=== PATIENT | male | born 1990 | race Two or more races ===

== ENCOUNTER 2016-12-13 11:27 | Emergency (ER) | payer MEDICARE, OTHER ==
[2016-12-13 11:58] VITALS: TEMP 97.5; BMI 29.5
--- NOTE | 2016-12-13 15:00 | PDOC ---
History of Present Illness - General Chief Complaint: Headache Stated Complaint: HEADACHE Time Seen by Provider: 12/13/16 15:00 - History of Present Illness Initial Comments: 12/13/16 16:20 Patient is a 26-year-old male with a past medical history of diabetes type 1, hypertension, asthma, Bipolar disorder, herniated disc, who presents to the ED today complaining headache nausea and diarrhea 3 days. Patient states that his headache is mostly frontal and is like his usual headaches. He was concerned because he also had nausea and diarrhea. Patient has not vomited. Patient states that his headaches currently a 6 out of 10. He has not taken anything for his headache. He usually takes Toradol for his headaches, it usually works for him. Patient was able to eat this morning; he had eggs for breakfast. Denies recent sick contacts, fevers, chills, cough, SOB, chest pain, palpitations, vomiting, diarrhea. Past History - Past Medical History Allergies/Adverse Reactions: Allergies Allergy/AdvReac Type Severity Reaction Status Date / Time morphine Allergy Severe Difficulty Verified 12/13/16 11:55 Breathing shellfish derived Allergy Intermediate Itching Verified 12/13/16 11:55 sumatriptan [From Imitrex] AdvReac Intermediate ANAPHYLAXIS Verified 12/13/16 11 :55 sumatriptan succinate AdvReac Intermediate ANAPHYLAXIS Verified 12/13/16 11:55 [From Imitrex] cherries Allergy Uncoded 12/13/16 11:55 chocolate Allergy Uncoded 12/13/16 11:55 Home Medications: Ambulatory Orders Ergocalciferol (Vitamin D2) [Vitamin D] 50,000 unit PO WEEKLY 10/28/15 Metformin HCl [Glucophage] 1,000 mg PO BID 10/28/15 [place]-3 Fatty Acids [[place]-3] 1,000 mg PO BID 10/28/15 Gabapentin [Neurontin -] 400 mg PO BID 08/01/16 Divalproex Sodium [Depakote ER] 500 mg PO DAILY 12/10/16 Insulin Glargine,Hum.rec.anlog [Lantus Solostar PEN (NF)] 15 units SQ HS Lipase/Protease/Amylase [Liz Cardoso 6,000 Units Capsule] 1 cap PO TIDCM 12/10/16 Losartan Potassium [Cozaar -] 25 mg PO DAILY 12/10/16 Meloxicam [Mobic] 15 mg PO DAILY 12/10/16 Asthma: Yes Cancer: No Diabetes: Yes HTN: Yes Liver Disease: Yes Psychiatric Problems: Yes (ADHD, bipolar, anxiety, panic attacks) Seizures: No - Surgical History Abdominal Surgery: Yes Appendectomy: Yes - Immunization History Immunization Up to Date: Yes - Psycho/Social/Smoking Cessation Hx Anxiety: Yes Suicidal Ideation: No Smoking History: Former smoker Have you smoked in the past 12 months: Yes Number of Cigarettes Smoked Daily: 20 If you are a former smoker, when did you quit?: July Information on smoking cessation initiated: Yes Hx Alcohol Use: No Drug/Substance Use Hx: No Substance Use Type: None Hx Substance Use Treatment: No *Physical Exam - Vital Signs Last Vital Signs Temp Pulse Resp BP Pulse Ox 97.5 F L 86 18 155/97 100 12/13/16 11:56 12/13/16 11:56 12/13/16 11:56 12/13/16 11:56 12/13/16 11:56 - Physical Exam Comments: 12/13/16 16:25 GENERAL: Well developed, well nourished. Awake and alert. No acute distress. HEENT: Normocephalic, atraumatic. PERRLA, EOMI. No conjunctival pallor. Sclera are non- icteric. Moist mucous membranes. Oropharynx is clear. NECK: Supple. Full ROM. (-) kernigs/brudinski's sign. No JVD. Carotid pulses 2+ and symmetric, without bruits. No thyromegaly. No lymphadenopathy. CARDIOVASCULAR: Regular rate and rhythm. No murmurs, rubs, or gallops. Distal pulses are 2+ and symmetric. PULMONARY: No evidence of respiratory distress. Lungs clear to auscultation bilaterally. No wheezing, rales or rhonchi. ABDOMINAL: Soft. Non-tender. Non-distended. No rebound or guarding. No organomegaly. Normoactive bowel sounds. MUSCULOSKELETAL Normal range of motion at all joints. No bony deformities or tenderness. No CVA tenderness. EXTREMITIES: No cyanosis. No clubbing. No edema. No calf tenderness. SKIN: Warm and dry. Normal capillary refill. No rashes. No jaundice. NEUROLOGICAL: Alert, awake, appropriate. Cranial nerves 2-12 intact. No deficits to light touch and temperature in face, upper extremities and lower extremities. No motor deficits in the in face, upper extremities and lower extremities. Normoreflexic in the upper and lower extremities. Normal speech. Toes are down- going bilaterally. Gait is normal without ataxia. PSYCHIATRIC: Cooperative. Good eye contact. Appropriate mood and affect. ED Treatment Course - LABORATORY CBC & Chemistry Diagram: 12/13/16 16:02 12/13/16 16:02 Medical Decision Making - Medical Decision Making 12/13/16 16:45 Mr. Amin is a 26 y/o male with a complex medical history presenting with headache 2 days. Given patient's other constitutional symptoms including nausea and diarrhea will order labs to rule out possible DKA or infection. Not concerned for meningitis given lack of nurological focal findings, (-) brudinski 's and kernig signs. No fever. We'll treat the headache and nausea. Patient states he usually gets Toradol at home. However given his diabetes will use Reglan and tylenol. Will reevaluate. 1. CBC, CMP, UA, Acetone, CXR to r/o DKA and infection 2. Reglan, tylenol and zofran for symptomatic treatment 3. Will re-evaluate 12/13/16 17:30 Pt states he is feeling much better after the reglan, tylenol and zofran and states his headache is all gone. Labs show no evidence of DKA or bacterial infection. Anion gap is 14. CXR shows no acute cardiopulmonary pathology Will discharge home at this time. *DC/Admit/Observation/Transfer Diagnosis at time of Disposition: Headache Qualifiers: Headache type: unspecified Headache chronicity pattern: acute headache Intractability: not intractable Qualified Code(s): R51 - Headache - Discharge Dispostion Admit: No - Referrals Referrals: Sakina Rivera MD [Primary Care Provider] - - Patient Instructions Printed Discharge Instructions: DI for Headache Additional Instructions: You had a headache today. We were able to relieve the pain in the ED. Your blood work was normal today. Take tylenol for pain if headache persists. In regards to your diarrhea, avoid dairy products for 48 hours after symptoms are gone. Return to ED if you experience worsening headache, dizziness, new numbness or tingling or light headedness Print Language: KYRGYZ
[2016-12-13] MEDS ORDERED: METOCLOPRAMIDE HCL INJECTION 10 MG/2 ML VIAL IVPUSH ONE (15:19)
[2016-12-13] MEDS ORDERED: METOCLOPRAMIDE HCL INJECTION 10 MG/2 ML VIAL ONE (15:46)
[2016-12-13 16:32] LABS: BASOPHIL 0.7 % (0-2.0); EOSINOPHIL 2.5 % (0-4.5); MCH 27.1 pg (25.7-33.7); MCHC 33.7 g/dl (32.0-35.9); MEAN CELL VOLUME 80.3 fl (80-96); MEAN PLT VOLUME 8.3 fl (7.5-11.1); NEUTROPHILS 56.6 % (42.8-82.8); PLATELET COUNT 239 K/MM3 (134-434); RDW 14.3 % (11.9-15.9); WHITE BLOOD COUNT 7.9 K/mm3 (4.0-10.0)
[2016-12-13 16:35] LABS: ALBUMIN 3.8 g/dl (3.4-5.0); ANION GAP 6 (8-16); BILIRUBIN,TOTAL 0.3 mg/dL (0.2-1.0); CALCIUM 9.1 mg/dL (8.5-10.1); CO2 31 mmol/L (21-32); CREATININE 0.5 mg/dL (0.7-1.3); GLUCOSE,RANDOM 164 mg/dL (74-106); SGOT/AST 18 U/L (15-37); SGPT/ALT 39 U/L (12-78)
[2016-12-13 16:36] LABS: ALK PHOS 84 U/L (45-117); TOT PROT 7.3 g/dl (6.4-8.2)
[2016-12-13] MEDS ORDERED: ACETAMINOPHEN 500 MG TABLET (FP) PO ONE (16:45)
[2016-12-13] MEDS ORDERED: ACETAMINOPHEN 325 MG TABLET (FP) ONE (16:45)
[2016-12-13] MEDS ORDERED: ONDANSETRON 4 MG/2 ML VIAL IVPUSH ONE (16:49)
[2016-12-13 17:58] LABS: URINE APPEARANCE CLEAR; URINE BILIRUBIN NEGATIVE (NEGATIVE); URINE BLOOD NEGATIVE (NEGATIVE); URINE COLOR STRAW; URINE GLUCOSE (UA) 1+ (NEGATIVE); URINE KETONE NEGATIVE (NEGATIVE); URINE LEUK ESTERASE NEGATIVE (NEGATIVE); URINE NITRITE NEGATIVE (NEGATIVE); URINE PROTEIN NEGATIVE (NEGATIVE); URINE UROBILINOGEN NEGATIVE E.U./dl (0.2-1.0)
[2016-12-13 18:13] VITALS: BP 140/84; PULSE 78
--- NOTE | 2016-12-13 19:08 | PDOC ---
*Physical Exam - Vital Signs Last Vital Signs Temp Pulse Resp BP Pulse Ox 97.5 F L 78 18 140/84 100 12/13/16 11:56 12/13/16 18:10 12/13/16 18:10 12/13/16 18:10 12/13/16 18:10 ED Treatment Course - LABORATORY CBC & Chemistry Diagram: 12/13/16 16:02 12/13/16 16:02 - ADDITIONAL ORDERS Additional order review: Laboratory Results 12/13/16 12/13/16 12/13/16 16:45 16:02 16:02 Sodium 139 Potassium 4.3 Chloride 102 Carbon Dioxide 31 Anion Gap 6 L BUN 18 D Creatinine 0.5 L Creat Clearance w eGFR > 60 Random Glucose 164 H D Calcium 9.1 Total Bilirubin 0.3 D AST 18 ALT 39 Alkaline Phosphatase 84 Total Protein 7.3 Albumin 3.8 Urine Color Straw Urine Appearance Clear Urine pH 5.0 Ur Specific [place] 1.013 Urine Protein Negative Urine Glucose (UA) 1+ H Urine Ketones Negative Urine Blood Negative Urine Nitrite Negative Urine Bilirubin Negative Urine Urobilinogen Negative Ur Leukocyte Esterase Negative Acetone, Qual Negative 12/13/16 16:02 RBC 4.74 MCV 80.3 MCHC 33.7 RDW 14.3 MPV 8.3 Neutrophils % 56.6 Lymphocytes % 31.8 Monocytes % 8.4 Eosinophils % 2.5 Basophils % 0.7 - Medications Given in the ED: ED Medications Discontinued Medications Generic Name Dose Route Start Last Admin Trade Name Freq PRN Reason Stop Dose Admin Acetaminophen 1,000 mg 12/13/16 16:45 12/13/16 16:56 Tylenol - PO 12/13/16 16:46 1,000 mg ONCE ONE Administration Metoclopramide HCl 10 mg 12/13/16 15:19 12/13/16 16:01 Reglan Injection - IVPUSH 12/13/16 15:20 10 mg ONCE ONE Administration Ondansetron HCl 4 mg 12/13/16 16:49 12/13/16 17:11 Zofran Injection IVPUSH 12/13/16 16:50 4 mg ONCE ONE Administration Medical Decision Making - Medical Decision Making 12/13/16 19:08 26 yo M h/o migraine presenting to the Er with headache vitals stable No trauma No nuchal rigidity Pt seen by Midlevel Provider under my direct supervision Ancillary studies reviewed I agree with plan as outlined by Midlevel Provider Pt improved after treatment in the ER *DC/Admit/Observation/Transfer Diagnosis at time of Disposition: Headache Qualifiers: Headache type: unspecified Headache chronicity pattern: acute headache Intractability: not intractable Qualified Code(s): R51 - Headache - Referrals Referrals: Sakina Rivera MD [Primary Care Provider] - - Patient Instructions Printed Discharge Instructions: DI for Headache Additional Instructions: You had a headache today. We were able to relieve the pain in the ED. Your blood work was normal today. Take tylenol for pain if headache persists. In regards to your diarrhea, avoid dairy products for 48 hours after symptoms are gone. Return to ED if you experience worsening headache, dizziness, new numbness or tingling or light headedness Print Language: GE[place]GI[place] - Post Discharge Activity
== END 2016-12-13 18:13 | disposition home or self-care (01) ==
LOC: JER 11:27
PROC: 3E033GC Introduction of Other Therapeutic Substance into Peripheral Vein, Percutaneous Approach (ICD-10-PCS; principal; 2016-12-13)
DX: R51 Headache (principal); E10.8 Type 1 diabetes mellitus with unspecified complications; Z79.4 Long term (current) use of insulin; Z79.84 Long term (current) use of oral hypoglycemic drugs; J45.909 Unspecified asthma, uncomplicated; I10 Essential (primary) hypertension; F90.9 Attention-deficit hyperactivity disorder, unspecified type; F41.9 Anxiety disorder, unspecified; F31.9 Bipolar disorder, unspecified; Z87.891 Personal history of nicotine dependence
CPT/HCPCS: 36415; 71020-TC; 80053; 81003; 82009; 85025; 96374; 96375; 99283-25